=== PATIENT | male | born 1985 | race Caucasian/White ===

== ENCOUNTER 2016-07-04 15:38 | Observation (INO) | payer OTHER ==
[2016-07-04] VITALS (7 sets, daily range): BP systolic 112–140; BP diastolic 63–96
[~2016-07-04] VITALS: Ht 182.9 cm; Wt 59.9 kg
[2016-07-04] MEDS ORDERED: DEXTROSE 10% IV SOLUTION 1,000 ML IV ONE (17:59)
[2016-07-04] MEDS ORDERED: ONDANSETRON 4 MG/2 ML (SDV) Z0FRAN IVP PRN (18:15)
[2016-07-04] MEDS ORDERED: INSU100V3 SQ (18:23)
[2016-07-04] MEDS ORDERED: INSU100V SQ (18:23)
[2016-07-04 18:49] LABS: MEAN PLATELET VOLUME 9.5 FL (7.4-10.4); RED BLOOD COUNT 4.59 10^6/uL (4.35-5.85); RED CELL DISTRIBUTION WIDTH 11.9 % (10.0-14.5); WHITE BLOOD COUNT 15.9 10^3/uL (4.3-11.0)
[2016-07-04] MEDS ORDERED: PIPERACILLIN/TAZO 4.5 GM VIAL (ZOSYN) IV ONE (19:07)
[2016-07-04] MEDS ORDERED: NS (IVPB) 100 ML ONE (19:07)
[2016-07-04 19:09] LABS: ALANINE AMINOTRANSFERASE 11 U/L (0-55); ALBUMIN 3.9 G/DL (3.2-4.5); ANION GAP 13 MMOL/L (5-14); ASPARTATE AMINO TRANSFERASE 10 U/L (5-34); BILIRUBIN,TOTAL 0.4 MG/DL (0.1-1.0); BLOOD UREA NITROGEN 39 MG/DL (7-18); BUN/CREATININE RATIO 40; CALCIUM 9.2 MG/DL (8.5-10.1); CARBON DIOXIDE 23 MMOL/L (21-32); CHLORIDE 105 MMOL/L (98-107); CREATININE SERUM 0.98 MG/DL (0.60-1.30); GFR ESTIMATED > 60; GLUCOSE 108 MG/DL (70-105); MAGNESIUM 1.9 MG/DL (1.8-2.4); POTASSIUM 4.2 MMOL/L (3.6-5.0); SODIUM 141 MMOL/L (135-145); TOTAL PROTEIN 6.4 G/DL (6.4-8.2)
[2016-07-04] MEDS: NS IV 1000 ML 1,000 ML IV SCH (19:17)
[2016-07-04] MEDS: PIPERACILLIN SODIUM/TAZOBACTAM 4.5 GM in NS (IVPB) 100 ML IV SCH (19:18)
[2016-07-04] MEDS: morphine INJ 4 MG/ML 1 ML (VIAL/SYRINGE) IVP PRN (19:18)
[2016-07-04] MEDS: SUCRALFATE 1 GM (CARAFATE) TAB PO SCH (20:59)
[2016-07-04] MEDS: inSUlin ASPART (NovoLOG) 1 UNIT/0.01 ML (CHARGE PER UNIT) SC SCH (20:59)
[2016-07-04] MEDS: PANTOPRAZOLE 40 MG/10 ML (PROTONIX) VIAL IV SCH (20:59)
[2016-07-04] MEDS: MAGIC MOUTHWASH, ADULT 155 ML BOTTLE PO SCH (23:00)
[2016-07-05] VITALS (24 sets, daily range): BP systolic 97–132; BP diastolic 59–96
[2016-07-05] MEDS: PIPERACILLIN SODIUM/TAZOBACTAM 4.5 GM in NS (IVPB) 100 ML IV SCH ×2 (00:19→06:12)
[2016-07-05] MEDS: morphine INJ 4 MG/ML 1 ML (VIAL/SYRINGE) IVP PRN ×6 (00:20→20:42)
[2016-07-05] MEDS: NS IV 1000 ML 1,000 ML IV SCH ×4 (01:47→21:57)
[2016-07-05 04:25] LABS: MEAN PLATELET VOLUME 9.7 FL (7.4-10.4); RED BLOOD COUNT 3.95 10^6/uL (4.35-5.85); RED CELL DISTRIBUTION WIDTH 11.6 % (10.0-14.5); WHITE BLOOD COUNT 10.6 10^3/uL (4.3-11.0)
[2016-07-05 04:52] LABS: ALANINE AMINOTRANSFERASE 9 U/L (0-55); ALBUMIN 3.3 G/DL (3.2-4.5); ANION GAP 9 MMOL/L (5-14); ASPARTATE AMINO TRANSFERASE 9 U/L (5-34); BILIRUBIN,TOTAL 0.5 MG/DL (0.1-1.0); BLOOD UREA NITROGEN 25 MG/DL (7-18); BUN/CREATININE RATIO 26; CALCIUM 8.4 MG/DL (8.5-10.1); CARBON DIOXIDE 23 MMOL/L (21-32); CHLORIDE 105 MMOL/L (98-107); CREATININE SERUM 0.97 MG/DL (0.60-1.30); GFR ESTIMATED > 60; GLUCOSE 303 MG/DL (70-105); MAGNESIUM 1.8 MG/DL (1.8-2.4); POTASSIUM 4.2 MMOL/L (3.6-5.0); SODIUM 137 MMOL/L (135-145); TOTAL PROTEIN 5.6 G/DL (6.4-8.2)
[2016-07-05] MEDS: SUCRALFATE 1 GM (CARAFATE) TAB PO SCH ×4 (06:00→20:41)
[2016-07-05] MEDS: inSUlin ASPART (NovoLOG) 1 UNIT/0.01 ML (CHARGE PER UNIT) SC SCH ×7 (06:12→20:50)
[2016-07-05] MEDS ORDERED: CATHETER FLUSH 10 ML SYR IV PRN (07:30)
[2016-07-05] MEDS: PANTOPRAZOLE 40 MG/10 ML (PROTONIX) VIAL IV SCH ×2 (08:12→20:45)
[2016-07-05] MEDS: MAGIC MOUTHWASH, ADULT 155 ML BOTTLE PO SCH ×4 (08:13→20:45)
[2016-07-05] MEDS ORDERED: inSUlin DETERMIR 1 UNIT/0.01 ML (LEVEMIR) CHARGE PER UNIT SQ SCH (09:00)
--- NOTE | 2016-07-05 09:28 | Diagnostic Imaging Report ---
PROCEDURE: US abdomen complete. TECHNIQUE: Multiple real-time grayscale images were obtained over the abdomen in various projections. INDICATION: Pain. FINDINGS: The liver, gallbladder and bile ducts are normal. The pancreas and spleen are normal. The kidneys are normal. The aorta is obscured by bowel gas. No abnormality of the IVC is seen. There is no mass. There is no ascites. IMPRESSION: No abnormality is seen. Dictated by: Dictated on workstation # [id number]
--- NOTE | 2016-07-05 10:17 | History & Physical-Hospitalist ---
HPI History of Present Illness: HPI/Chief Complaint Mr. Frias is a 30-year-old white male with type I diabetes mellitus who noted the onset of nausea with vomiting James evening. He had been feeling well up until then and denied abdominal pain. He reported it was ascitic initially clear then became dark somewhat coffee-ground in color. He thought his stools were darker in color as well. He presented to [place] emergency room where they're according to the emergency room physician digital rectal evaluation revealed normal colored stool that was occult blood negative.he reported epigastric pain radiating to his back with continued nausea. He denied alcohol intake history of peptic ulcer disease or past pancreatitis. He has a history of poorly controlled diabetes. While I was told he was in DKA because he had 1 + ketones in his urine his CO2 level on his basic metabolic panel was 26 with a blood sugar level in the mid 300 range. His white count was elevated with left shift. He was afebrile. Date Seen 07/05/16 Attending Physician Delaney Fonseca MD PCP No,Local Physician Referring Physician Date of Admission Jul 04, 2016 at 17:56 Home Medications & Allergies Home Medications Reviewed patient Home Medication Reconciliation Form Allergies Allergies Coded Allergies adhesive tape (Verified Allergy, Mild, Rash, 07/04/16) Past Fdlfupw-Mlhvdn-Imwqir Hx Patient Social History Alcohol Use: Denies Use Recreational Drug Use: No Smoking Status: Never a Smoker Physical Abuse Screen: No Sexual Abuse: No Recent Foreign Travel: No Contact w/other who traveled: No Recent Hopitalizations: No Recent Infectious Disease Expo: No Immunizations Up To Date Date of Influenza Vaccine: Jan 13, 2016 Seasonal Allergies Seasonal Allergies: No Blood Transfusions Adverse Reaction to a Blood Tr: No Review of Systems Constitutional: see HPI Physical Exam Physical Exam Vital Signs Vital Sign - Last 12Hours 07/04/16 18:00 Temp 99.8 Pulse 105 Resp 12 B/P (MAP) 138/90 Pulse Ox 97 O2 Delivery Room Air Capillary Refill : General Appearance: Anxious, Mild Distress Respiratory: Chest Non Tender, Lungs Clear, Normal Breath Sounds, No Accessory Muscle Use, No Respiratory Distress Cardiovascular: Regular Rate, Rhythm, No Edema, No Gallop, No JVD, No Murmur, Normal Peripheral Pulses Gastrointestinal: Normal Bowel Sounds, No Organomegaly, No Pulsatile Mass, Soft , Other (mild right upper quadrant tenderness to palpationno abdominal distention noted patient is a thin white male who does not appear to be malnourished) Rectal: Deferred Skin: Normal Color, Warm/Dry Lymphatic: No Adenopathy Results Results/Procedures Lab Laboratory Tests 07/04/16 18:40 07/05/16 03:55 Assessment/Plan Admission Diagnosis 1. Nausea vomiting questionable hematemesis gastroenteritis most likely there may be a component of diabetic-related gastroparesis. Anti-medic therapy and proton pump inhibitor therapy of been initiated. Abdominal sonogram was ordered and reveals no biliary tract abnormalities and is unremarkable. His white count is significantly lower today and I suspect his elevated due to stress response as it is returned to normal we'll discontinue antibiotics as there is no evidence for bacterial infection at this time. 2. There is no evidence for DKA continue IV fluids and initiate basal bolus insulin and a clear liquid diet.. Clinical Quality Measures DVT/VTE Risk/Contraindication: RFS Level Per Nursing on Admit: 0=No Risk/No VTE PPX DELANEY FONSECA MD Jul 05, 2016 10:17
[2016-07-06] VITALS (12 sets, daily range): BP systolic 103–132; BP diastolic 66–97
[2016-07-06] MEDS: morphine INJ 4 MG/ML 1 ML (VIAL/SYRINGE) IVP PRN ×2 (01:20→06:24)
[2016-07-06] MEDS: NS IV 1000 ML 1,000 ML IV SCH (04:31)
[2016-07-06] MEDS: inSUlin ASPART (NovoLOG) 1 UNIT/0.01 ML (CHARGE PER UNIT) SC SCH ×2 (06:00→07:01)
[2016-07-06] MEDS: SUCRALFATE 1 GM (CARAFATE) TAB PO SCH (06:24)
[2016-07-06] MEDS ORDERED: OMEP20TA7 PO (07:24)
[2016-07-06] MEDS: PANTOPRAZOLE 40 MG/10 ML (PROTONIX) VIAL IV SCH (10:25)
[2016-07-06] MEDS: MAGIC MOUTHWASH, ADULT 155 ML BOTTLE PO SCH (10:26)
--- NOTE | 2016-07-07 08:17 | Physician Query-Final Dx ---
IMELDA CHAN 07/07/16 0817: Clinic Account Progress/Dx Physician Query: Please give diagnosis Date of Service 07/04/16 THRU 07/06/16 Progress Note: Imelda [phone] DELANEY FONSECA MD 07/07/167: Clinic Account Progress/Dx DIAGNOSIS: Diagnosis 1. gastroenteritis 2. uncontrolled type 1 DM. IMELDA CHAN Jul 07, 2016 08:17 DELANEY FONSECA MD Jul 07, 2016 20:37
== END 2016-07-06 07:25 | disposition home or self-care (01) ==
LOC: DELPENDDIS → ICU 17:56 → INTOOBSV 17:56 → UNDOADMOB 17:56 → ICU 18:00 → UNDODISIN 07-06 14:29
PROVIDERS: ADMIT Internal Medicine; ATTEND Internal Medicine
DX: K52.9 Noninfective gastroenteritis and colitis, unspecified (principal); E10.65 Type 1 diabetes mellitus with hyperglycemia
CPT/HCPCS: 36415; 76700; 80053; 82962; 83735; 85027; 87081; 99211; G0378

== ENCOUNTER 2016-11-16 16:46 | Inpatient (IN) | payer OTHER ==
[~2016-11-16] VITALS: Ht 182.9 cm; Wt 63.2 kg
[~2016-11-16 16:46] MED LIST: INSU100V SQ; INSU100V3 SQ; OMEP20TA7 PO
[2016-11-16 18:15] VITALS: BP 133/81
[2016-11-16] MEDS ORDERED: D5 1/2 NS 1000 ML IV SOLUTION 1,000 ML IV SCH (18:15)
[2016-11-16] MEDS ORDERED: inSUlin REGULAR TPN/DRIP ONLY 250 UNITS in NORMAL SALINE 250 ML IV SCH (18:15)
[2016-11-16 18:52] LABS: CALCIUM 8.3 MG/DL (8.5-10.1); CREATININE SERUM 2.47 MG/DL (0.60-1.30); POTASSIUM 4.5 MMOL/L (3.6-5.0)
[2016-11-16 19:00] VITALS: BP 119/75
[2016-11-16] MEDS: D5 1/2 NS W/KCL 20 MEQ/L 1,000 ML IV SCH ×2 (19:17→20:49)
[2016-11-16] MEDS: DEXTROSE 10% IV SOLUTION 1,000 ML IV SCH (19:17)
[2016-11-16] MEDS: 1/2 NS IV SOLUTION 1,000 ML IV SCH ×2 (19:18→22:10)
[2016-11-16 20:00] VITALS: BP 123/68
[2016-11-16 20:34] LABS: CALCIUM 8.2 MG/DL (8.5-10.1); CREATININE SERUM 2.17 MG/DL (0.60-1.30); POTASSIUM 4.6 MMOL/L (3.6-5.0)
[2016-11-16] MEDS: 1/2 NS W/KCL 20 MEQ/L 1,000 ML IV SCH ×2 (20:49→22:10)
[2016-11-16 21:00] VITALS: BP 142/79
[2016-11-16 22:00] VITALS: BP 141/79
[2016-11-16 22:48] LABS: CALCIUM 8.1 MG/DL (8.5-10.1); CREATININE SERUM 1.97 MG/DL (0.60-1.30); POTASSIUM 4.8 MMOL/L (3.6-5.0)
[2016-11-16 23:00] VITALS: BP 141/82
[2016-11-17] VITALS (18 sets, daily range): BP systolic 111–155; BP diastolic 70–95
[2016-11-17 00:51] LABS: CALCIUM 8.1 MG/DL (8.5-10.1); CREATININE SERUM 1.8 MG/DL (0.60-1.30); POTASSIUM 4.8 MMOL/L (3.6-5.0)
[2016-11-17] MEDS: D5 1/2 NS W/KCL 20 MEQ/L 1,000 ML IV SCH ×3 (00:51→10:08)
[2016-11-17] MEDS: 1/2 NS W/KCL 20 MEQ/L 1,000 ML IV SCH ×3 (01:47→09:15)
[2016-11-17] MEDS: 1/2 NS IV SOLUTION 1,000 ML IV SCH ×3 (01:47→09:14)
[2016-11-17] MEDS ORDERED: ONDANSETRON 4 MG/2 ML (SDV) Z0FRAN ONE (02:52)
[2016-11-17 04:03] LABS: BASOPHILS % (AUTO) 0 % (0-10); EOSINOPHILS % (AUTO) 1 % (0-10); LYMPHOCYTES # (AUTO) 0.2 X 10^3 (1.0-4.0); LYMPHOCYTES % (AUTO) 5 % (12-44); MEAN CORPUSCULAR HEMOGLOBIN 30 PG (25-34); MEAN CORPUSCULAR HGB CONC 37 G/DL (32-36); MEAN CORPUSCULAR VOLUME 82 FL (80-99); MONOCYTES # (AUTO) 0.6 X 10^3 (0.0-1.0); MONOCYTES % (AUTO) 15 % (0-12); NEUTROPHILS # (AUTO) 3.4 X 10^3 (1.8-7.8); NEUTROPHILS % (AUTO) 80 % (42-75); PLATELET COUNT 318 10^3/uL (130-400); RED BLOOD COUNT 3.92 10^6/uL (4.35-5.85); WHITE BLOOD COUNT 4.2 10^3/uL (4.3-11.0)
[2016-11-17] MEDS: DEXTROSE 10% IV SOLUTION 1,000 ML IV SCH ×2 (04:10→09:15)
[2016-11-17 04:37] LABS: CREATININE SERUM 1.44 MG/DL (0.60-1.30); POTASSIUM 4.7 MMOL/L (3.6-5.0)
[2016-11-17 04:39] LABS: MAGNESIUM 3.4 MG/DL (1.8-2.4); PHOSPHORUS 1.6 MG/DL (2.3-4.7)
[2016-11-17 05:13] LABS: BAND NEUTROPHILS 23 %; BASOPHILS % (MANUAL) 4 %; EOSINOPHILS % (MANUAL) 0 %; LYMPHOCYTES % (MANUAL) 4 %; NEUTROPHILS % (MANUAL) 60 %
[2016-11-17] MEDS ORDERED: KCL 20 MEQ TAB (K-DUR) PO SCH (06:00)
[2016-11-17] MEDS ORDERED: MAGNESIUM 1 GM/100 ML IVPB 100 ML IV SCH (06:00)
[2016-11-17] MEDS ORDERED: POTASSIUM CL 10MEQ/50ML IVPB 50 ML IV SCH (06:00)
--- NOTE | 2016-11-17 06:56 | Pulmonary Consultation ---
History of Present Illness History of Present Illness Date of Consultation 11/17/16 06:43 Time Seen by Provider: 07:32 Date of Admission History of Present Illness 31 yo with hx of type 1 DM who transferred here from [facility] secondary to worsening n/v. He was found to be in DKA and transferred to our ICU. He is currently on DKA protocol. He continues to complain of N/V, generalized abdominal pain, and CP. moderate CP radiates from midepigastric up sternum. I am consulted for ICU management. Allergies and Home Medications Allergies Coded Allergies: adhesive tape (Verified Allergy, Mild, Rash, 07/04/16) Home Medications Insulin Lispro 100 Unit/1 Ml Vial, 0 SQ AC, (Reported) Insulin Regular, Human 1,000 Units/10 Ml Soln, 50 UNITS SQ BID, (Reported) Patient uses own sliding scale for meal bolus insulin 151-200 4 units 201- 250 5 units 251-300 6 units 301-350 7 units 351-400 8 units 351-400 8 units Omeprazole 20 Mg Tablet.dr, 20 MG PO DAILY for 30 Days Prescribed by: DELANEY FONSECA on 07/06/16 0724 Past Qigvkkg-Hcwzzu-Xnltaf Hx Patient Social History Alcohol Use: Denies Use Recreational Drug Use: Yes (POT OCCASIONALLY) Smoking Status: Current Everyday Smoker Type Used: Cigarettes Recent Foreign Travel: No Contact w/Someone Who Travel: No Recent Infectious Disease Expo: No Recent Hopitalizations: No Physical Abuse Screen: No Sexual Abuse: No Immunizations Up To Date PED Vaccines UTD: No Date of Influenza Vaccine: Jan 13, 2016 Seasonal Allergies Seasonal Allergies: No Blood Transfusions Adverse Reaction to a Blood Tr: No Exam Exam Vital Signs Date Time Temp Pulse Resp B/P (MAP) Pulse Ox O2 Delivery O2 Flow Rate FiO2 11/17/16 06:00 108 18 130/78 100 Room Air 11/17/16 05:00 116 15 125/76 96 Room Air 11/17/16 04:00 99 Room Air 11/17/16 04:00 98.2 111 22 136/83 97 Room Air 11/17/16 03:00 112 9 146/89 97 Room Air 11/17/16 02:00 99.2 114 23 127/76 96 Room Air 11/17/16 01:00 115 21 149/94 94 Room Air 11/17/16 01:00 114 11/17/16 00:00 116 21 155/89 99 Room Air 11/17/16 00:00 99 Room Air 11/16/16 23:00 120 21 141/82 100 Room Air 11/16/16 22:00 118 23 141/79 100 Room Air 11/16/16 21:00 118 23 142/79 100 Room Air 11/16/16 20:00 100 Room Air 11/16/16 20:00 121 14 123/68 99 Room Air 11/16/16 19:00 117 22 119/75 100 Room Air 11/16/16 19:00 116 11/16/16 18:15 Room Air 11/16/16 18:15 99.5 117 14 133/81 100 Room Air I & O 11/17/16 07:00 Intake Total 2000 ml Output Total 2600 ml Balance -600 ml General Appearance: Moderate Distress Neck: Full Range of Motion, Normal Inspection, Non Tender, Supple Respiratory: Chest Non Tender, Lungs Clear, No Accessory Muscle Use, No Respiratory Distress Cardiovascular: Regular Rate, Rhythm, No Edema, No Gallop Gastrointestinal: normal bowel sounds, non tender, no organomegaly, No distended, guarding, No rebound, tenderness (LLQ ) Extremity: Normal Capillary Refill, Normal Inspection, Normal Range of Motion Neurologic/Psychiatric: Alert, Oriented x3 Skin: Normal Color, Warm/Dry Lymphatic: No Adenopathy Results Lab Laboratory Tests 11/16/16 18:30 11/16/16 20:11 11/16/16 22:18 11/17/16 00:27 11/17/16 03:37 Assessment/Plan Assessment/Plan -DKA -Continue insulin gtt until C02 on chem and anion gap are normal -Start long acting insulin 2 hrs prior to d/cing insulin gtt -aggressive IVF -NPO - until nausea resolved -N/V and abdominal pain with odynophagia -zofran 4mg IV Q6 -Check lactic acid, amylase, and lipase -keep patient NPO for now -LISA - prerenal -IVF Hypophosphatemia -replace Clinical Quality Measures DVT/VTE Risk/Contraindication: Risk Factor Score Per Nursin RFS Level Per Nursing on Admit: 3=High PATIENCE BAR DO Nov 17, 2016 06:56
[2016-11-17] MEDS ORDERED: POTASSIUM PHOSPHATE MM IV NR ×2 (07:00)
[2016-11-17] MEDS ORDERED: NS IV NR ×2 (07:00)
--- NOTE | 2016-11-17 07:49 | Diagnostic Imaging Report ---
CHEST 1 VIEW, AP/PA ONLY Indication: Diabetic ketoacidosis Comparison: None available. Findings: No focal airspace disease in the visualized lungs. Please note that the posterior lower lobes are poorly evaluated by portable radiography. No pleural effusion or pneumothorax. Normal cardiomediastinal silhouette. Impression: No acute cardiopulmonary process by portable radiography. Dictated by: Dictated on workstation # [id number]
[2016-11-17 08:12] LABS: AMYLASE 150 U/L (25-125); ANION GAP 11 MMOL/L (5-14); BLOOD UREA NITROGEN 38 MG/DL (7-18); BUN/CREATININE RATIO 32; CALCIUM 8.1 MG/DL (8.5-10.1); CARBON DIOXIDE 19 MMOL/L (21-32); CHLORIDE 105 MMOL/L (98-107); CREATININE SERUM 1.18 MG/DL (0.60-1.30); GFR ESTIMATED > 60; GLUCOSE 180 MG/DL (70-105); LIPASE 39 U/L (8-78); POTASSIUM 5.1 MMOL/L (3.6-5.0); SODIUM 135 MMOL/L (135-145)
[2016-11-17] MEDS ORDERED: GABA-486 PO (08:54)
[2016-11-17] MEDS ORDERED: INSN1U SQ (08:54)
[2016-11-17 10:42] LABS: BILIRUBIN,URINE NEGATIVE (NEGATIVE); KETONES,URINE 2+ (NEGATIVE); LEUKOCYTE ESTERASE ,URINE NEGATIVE (NEGATIVE); NITRITE,URINE NEGATIVE (NEGATIVE); PH,URINE 6 (5-9); PROTEIN,URINE 2+ (NEGATIVE); UROBILINOGEN,URINE NORMAL (NORMAL)
[2016-11-17 10:52] LABS: SQUAMOUS EPITHELIAL CELL,UR 0-2 /HPF
[2016-11-17 12:34] LABS: ANION GAP 9 MMOL/L (5-14); BLOOD UREA NITROGEN 32 MG/DL (7-18); BUN/CREATININE RATIO 30; CALCIUM 8.1 MG/DL (8.5-10.1); CARBON DIOXIDE 21 MMOL/L (21-32); CHLORIDE 105 MMOL/L (98-107); CREATININE SERUM 1.06 MG/DL (0.60-1.30); GFR ESTIMATED > 60; GLUCOSE 174 MG/DL (70-105); POTASSIUM 4.8 MMOL/L (3.6-5.0); SODIUM 135 MMOL/L (135-145)
--- NOTE | 2016-11-17 13:45 | History & Physical-Hospitalist ---
HPI History of Present Illness: HPI/Chief Complaint The patient is a 31-year-old white male referred from the [facility] emergency room yesterday. He presented there feeling generally ill and quite nauseated with vomiting. He is a type I diabetic and was hospitalized here in June [address] Carrasco. The nurse practitioner from the [facility] emergency room reported that the initial blood sugar was high on their glucometer which would mean more than 600. Ultimately when the laboratory results were available the blood sugar was reported to me as being 1200. The practitioner gave him 20 units of IV insulin as a bolus and started him on a drip at 6.4 units per hour on a weight based scale. He was reported to be lucid but with at the odor of ketones. He was accepted in transfer. In reviewing his records from June, his blood sugars and apparent ketones/acidosis at that time were much less. The provider at [facility] also stated that he had had a previous contact their with blood sugars in the 700s or more. He reports that he is feeling much better today although somewhat nauseated. He does not believe that he had missed any doses of insulin. He takes 40 units of a novolin product which I believe to be NPH twice daily. In addition he apparently uses a sliding scale and Humalog with meals. He states he has been diabetic for about 17 years. Source: patient Exam Limitations: no limitations Date Seen 11/17/16 Time Seen by Provider: 13:39 Attending Physician Nico Willis MD PCP No,Local Physician Referring Physician Date of Admission Nov 16, 2016 at 18:15 Home Medications & Allergies Home Medications Reviewed patient Home Medication Reconciliation Form Allergies Allergies Coded Allergies adhesive tape (Verified Allergy, Mild, Rash, 07/04/16) Past Ucxctzf-Aepjbr-Yvutkv Hx Patient Social History Employed/Student: employed Alcohol Use: Denies Use Recreational Drug Use: Yes (POT OCCASIONALLY) Smoking Status: Current Everyday Smoker Type Used: Cigarettes Physical Abuse Screen: No Sexual Abuse: No Recent Foreign Travel: No Contact w/other who traveled: No Recent Hopitalizations: No Recent Infectious Disease Expo: No Immunizations Up To Date Date of Influenza Vaccine: Jan 13, 2016 Seasonal Allergies Seasonal Allergies: No Blood Transfusions Adverse Reaction to a Blood Tr: No Review of Systems Constitutional: see HPI EENTM: no symptoms reported Respiratory: no symptoms reported Cardiovascular: no symptoms reported Gastrointestinal: nausea, vomiting Genitourinary: frequency Musculoskeletal: no symptoms reported Skin: no symptoms reported Psychiatric/Neurological: Paresthesia (feet) Physical Exam Physical Exam Vital Signs Vital Sign - Last 12Hours Capillary Refill : Less Than 3 Seconds General Appearance: Mild Distress, Other (no odor of ketones) Eyes: Bilateral Eye Normal Inspection HEENT: PERRL/EOMI, Normal ENT Inspection, Pharynx Normal Neck: Full Range of Motion, Normal Inspection, Non Tender, Supple, Carotid Bruit Respiratory: Chest Non Tender, Lungs Clear, Normal Breath Sounds, No Accessory Muscle Use, No Respiratory Distress Cardiovascular: Regular Rate, Rhythm, No Edema, No Gallop, No JVD, No Murmur, Normal Peripheral Pulses Gastrointestinal: Normal Bowel Sounds, No Organomegaly, No Pulsatile Mass, Non Tender, Soft Back: Normal Inspection, No CVA Tenderness, No Vertebral Tenderness Extremity: Normal Capillary Refill, Normal Inspection, Normal Range of Motion, Non Tender, No Calf Tenderness, No Pedal Edema Neurologic/Psychiatric: Alert, Oriented x3, No Motor/Sensory Deficits, Normal Mood/Affect Skin: Normal Color, Warm/Dry Lymphatic: No Adenopathy Results Results/Procedures Lab Laboratory Tests 11/16/16 18:30 11/16/16 20:11 11/16/16 22:18 11/17/16 00:27 11/17/16 03:37 11/17/16 07:40 11/17/16 12:10 Assessment/Plan Admission Diagnosis Diabetes type I with ketoacidosis. 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 Advance diet and activity as tolerated. Transfer to floor. Clinical Quality Measures DVT/VTE Risk/Contraindication: Risk Factor Score Per Nursin RFS Level Per Nursing on Admit: 3=High NICO WILLIS MD Nov 17, 2016 13:45
[2016-11-17] MEDS: GABAPENTIN 100 MG (NEURONTIN) CAP PO SCH ×2 (13:51→20:59)
[2016-11-17] MEDS: inSUlin ASPART (NovoLOG) 1 UNIT/0.01 ML (CHARGE PER UNIT) SC SCH ×2 (15:42→19:55)
[2016-11-17] MEDS: ONDANSETRON 4 MG/2 ML (SDV) Z0FRAN IV PRN (15:42)
[2016-11-17] MEDS: inSUlin NPH (NovoLIN N) 1 UNIT/0.01 ML (CHARGE PER UNIT) SQ SCH (15:43)
[2016-11-18] MEDS: inSUlin ASPART (NovoLOG) 1 UNIT/0.01 ML (CHARGE PER UNIT) SC SCH ×4 (00:26→13:11)
[2016-11-18 00:36] VITALS: BP 138/79
[2016-11-18] MEDS: ONDANSETRON 4 MG/2 ML (SDV) Z0FRAN IV PRN ×2 (04:39→11:04)
[2016-11-18 04:53] VITALS: BP 132/83
[2016-11-18 05:42] LABS: MEAN PLATELET VOLUME 8.9 FL (7.4-10.4); RED BLOOD COUNT 3.91 10^6/uL (4.35-5.85); RED CELL DISTRIBUTION WIDTH 13.3 % (10.0-14.5); WHITE BLOOD COUNT 4.3 10^3/uL (4.3-11.0)
[2016-11-18 06:05] LABS: ANION GAP 11 MMOL/L (5-14); BLOOD UREA NITROGEN 17 MG/DL (7-18); BUN/CREATININE RATIO 20; CALCIUM 8.9 MG/DL (8.5-10.1); CARBON DIOXIDE 23 MMOL/L (21-32); CHLORIDE 102 MMOL/L (98-107); CREATININE SERUM 0.84 MG/DL (0.60-1.30); GFR ESTIMATED > 60; GLUCOSE 248 MG/DL (70-105); POTASSIUM 4.2 MMOL/L (3.6-5.0); SODIUM 136 MMOL/L (135-145)
[2016-11-18] MEDS: GABAPENTIN 100 MG (NEURONTIN) CAP PO SCH ×2 (08:56→13:14)
[2016-11-18] MEDS: inSUlin NPH (NovoLIN N) 1 UNIT/0.01 ML (CHARGE PER UNIT) SQ SCH (09:03)
--- NOTE | 2016-11-18 10:38 | Progress Note-Hospitalist ---
Standard Progress Note Progress Notes/Assess & Plan Date Seen 11/18/16 Time Seen by Provider: 10:38 Diagnosis Diabetes type I with ketoacidosis. 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 There is information from the past that suggests that he has a likely diabetic gastroparesis. Blood sugars are adequate in the face of variable oral intake. He is informed that if he can eat a bit more solid food for lunch he can be dismissed. It has been revealed that he is a patient of [facility] and sees Arpita Rob. Physical exam: He was sleeping as I entered the room. She is were pulled up completely over his head. He was easy to arouse. Lungs were clear to auscultation. There was no odor of ketones. CV was regular without murmur. Abdomen was soft and nontender. Bowel sounds were hypoactive. Impression: Ketoacidosis now resolved. Plan: Discharge with prompt follow-up by [facility] Labs Laboratory Tests 11/16/16 18:30 11/16/16 20:11 11/16/16 22:18 11/17/16 00:27 11/17/16 03:37 11/17/16 07:40 11/17/16 12:10 11/18/16 05:29 Final Diagnosis 1.diabetic ketoacidosis. 2.type I diabetes mellitus. 3.peripheral neuropathy. 4.suspect diabetic gastroparesis. JOSE WILLIS MD Nov 18, 2016 10:38
[2016-11-18] MEDS ORDERED: ONDA8TAB9 PO (10:40)
--- NOTE | 2016-11-18 10:47 | Discharge Instructions ---
Discharge Instructions Discharge Medications New, Converted or Re-Newed RX: Transmitted to Pharmacy Patient Instructions Patient Instructions: Continue your novolin N 40 units twice daily as before. Resume your Humalog on sliding scale. Schedule appointment at [facility] for Wednesday. Activity & Diet Discharge Diet: No Restrictions JOSE WILLIS MD Nov 18, 2016 10:47
[2016-11-18 11:35] VITALS: BP 118/80
[2016-11-18 15:20] VITALS: BP 118/80
== END 2016-11-18 15:20 | disposition home or self-care (01) | DRG 638 ==
LOC: ICU 18:15 → 4TH 11-17 17:53
PROVIDERS: ADMIT Internal Medicine; ATTEND Internal Medicine
DX: E10.10 Type 1 diabetes mellitus with ketoacidosis without coma (principal); N17.9 Acute kidney failure, unspecified; E10.40 Type 1 diabetes mellitus with diabetic neuropathy, unspecified; F17.210 Nicotine dependence, cigarettes, uncomplicated; E83.39 Other disorders of phosphorus metabolism
CPT/HCPCS: 36415; 71010; 80048; 81000; 82150; 82962; 83036; 83605; 83690; 83735; 84100; 85007; 85027